=== PATIENT | female | born 1990 | race Caucasian/White ===

== ENCOUNTER 2024-05-25 00:47 | Emergency (ER) | payer BC ==
[2024-05-25] MEDS ORDERED: Sodium Chloride 0.9% 10 ML Syringe FLUSH PRN (01:19)
[2024-05-25] MEDS: methylPREDNISolone Sodium Succinate 125 MG/2 ML SDV IVPUSH ONE (01:46)
[2024-05-25] MEDS: diphenhydrAMINE 50 MG/ML SDV IVPUSH ONE (01:46)
== END 2024-05-25 04:50 | disposition home or self-care (01) ==
LOC: JD.ED 00:47
DX: T78.40XA Allergy, unspecified, initial encounter (principal); R22.1 Localized swelling, mass and lump, neck; Z79.899 Other long term (current) drug therapy
CPT/HCPCS: 96374; 96375; 99283; J1200; J2919